=== PATIENT | male | born 1940 | race Caucasian/White ===

== ENCOUNTER → 2022-12-16 15:11 | Outpatient (REF) | payer MEDICARE, SELFPAY ==
--- NOTE | 2022-12-16 15:17 | CA_ITS ---
Transthoracic Echocardiogram Patient (Last, First, Middle): Gerry Chapman, Gender: Male Date of : 1940 Age: 82 Procedure Date: 12/16/2022 Procedure Type: Transthoracic Echocardiogram Location: [facility] Height: 177.8 cm Weight: 82.56 kg BSA: 2.01 m2 Heart Rate: bpm BP: 120 / 75 mmHg Software Test Engineer: SHAYLA Referring MD: Sarah EL Regulatory Specialist: Devon Vigil MD Symptoms: AFIB I48.91 Study Quality: Fair ECG Rhythm: Sinus Conclusions: - 1. 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 Normal cardiac valvular Dopplers 3. 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 Normal RV systolic pressure 5. No pericardial effusion Findings Left Ventricle Normal left ventricular cavity size. There is normal left ventricular wall thickness. The left ventricular systolic function is mildly decreased. The visually estimated ejection fraction is between 45-50%. There is mild global hypokinesis. Spectral Doppler is indicative of an impaired relaxation filling pattern. E/E prime ratio is <8, consistent with normal filling pressures. Evidence suggests grade I (mild) diastolic dysfunction. Right Ventricle Normal right ventricular cavity size and systolic function. Atria The left atrium is normal in size. Interatrial shunt cannot be excluded. The right atrium is normal in size. Aortic Valve There is mild calcification of the aortic valve. There is no aortic valve stenosis. There is no aortic valve regurgitation. Mitral Valve Normal mitral valve structure and function. There is trace mitral valve regurgitation. There is no mitral valve stenosis. Pulmonic Valve The pulmonic valve was not well visualized. Tricuspid Valve Normal tricuspid valve structure. There is trace tricuspid valve regurgitation. The right ventricular systolic pressure is normal. The right ventricular systolic pressure is 20 mmHg. Normal right atrial pressure. There is no evidence of pulmonary hypertension. Great Vessels The pulmonary artery was not well visualized. There is mild dilatation of the ascending aorta. Venous The inferior vena cava is normal in size and collapses greater than 50% with inspiration. Pericardium/Pleural There is no evidence of pericardial effusion. Prior Study Comparison no previous study in the last 5 years for comparison Measurements 2D Linear Measurements IVSd: 1.13 0.6-0.9/0.6-1.0 cm LVIDd: 4.67 3.9-5.3/4.2-5.9 cm LVIDd Index: 2.32 2.4-3.2/2.2-3.1 cm/m2 LVIDs: 3.25 2.0-3.6 cm LVPWd: 1.13 0.7-1.1 cm LA Diam: 3.60 2.7-3.8/3.0-4.0 cm LAIDs Index: 1.79 1.5-2.3 cm/m2 LV Mass: 240.20 67-162/88-224 g LV Mass Index: 119.50 43-95/49-115 g/m2 LVOT Diam: 2.40 3.0+(-)1.3 cm 2D Systolic Function EF 4C: 43.30 >55% EF 2C: 49.60 >55% EF BiP: 48.00 >55% Mitral Valve MV Pk E: 0.43 MV PK A: 0.60 MV Decel Time: 345.00 E/A: 0.70 E'Lateral: 7.94 E'Medial: 4.90 E/E' Med: 8.70 E/E' Lat: 5.40 PHT: 101.00 MVA PHT: 2.18 Decel [place]: 1.24 Aortic Valve AoV Pk Dylan: 1.12 AoV Mn Dylan: 0.87 AoV VTI: 0.29 AoV Pk Grad: 5.00 Aov Mn Grad: 3.00 SALIMA Cont.VTI: 2.90 LVOT LVOT Pk Dylan: 0.75 LVOT Mn Dylan: 0.54 LVOT VTI: 0.19 LVOT Pk Grad: 2.00 LVOT Mn Grad: 1.00 LVOT Diam: 2.40 LVOT Area: 4.52 Diastolic Function MV Pk E: 0.43 MV Pk A: 0.60 E/A: 0.70 E'Medial: 4.90 E/E' Med: 8.70 E' Laterial: 7.94 E/E' Lat: 5.40 Right Ventricle TAPSE (mm): 18.00 TVS' Dylan: 9.79 Tricuspid Valve TR Pk Dylan: 1.74 TR Pk Grad: 12.00 RA Press: 8.00 RVSP: 20.00 Great Vessels Aorta Sinus of Valsalva: 4.24 2.0-3.[address] [place]: 3.25 1.7-3.4 cm Ao Asc: 3.90 2.1-3.4 cm Updated in Other Vendor System with Status of Final Devon Vigil MD electronically signed on 12/17/2022 2:10:50 PM with status of Final
== END ==
LOC: HO.CARD 15:11
PROVIDERS: PCP Family Medicine; Visit Provider Registered Nurse
DX: I48.91 Unspecified atrial fibrillation (principal)
CPT/HCPCS: 93306